=== PATIENT | female | born 1990 | race Caucasian/White ===

== ENCOUNTER 2016-12-17 15:06 | Emergency (ER) | payer OTHER ==
[~2016-12-17] VITALS: Ht 162.6 cm; Wt 77.2 kg
[~2016-12-17 15:06] MED LIST: PRENCAP6 PO
[2016-12-17 15:24] VITALS: BP 113/70; PULSE 101; RESP 16; TEMP 97.6; O2SAT 97
[2016-12-17] MEDS ORDERED: BIRTH CONTROL PILLS (15:33)
--- NOTE | 2016-12-17 15:37 | PD ---
HPI Chief Complaint: Injury Time Seen by Provider: 15:32 Travel History International Travel<30 days: No Contact w/Intl Traveler<30days: No Traveled to known affect area: No History of Present Illness HPI This patient complains of left ankle injury. Duration 2 hours. Severity is moderate. Worse with weightbearing. She planted her ankle and it twisted on her and she has pain in the lateral aspect PFSH Past Medical History Medical History: Denies Significant Hx Diminished Hearing: No Immunizations Current: Yes Tetanus Vaccination: Unknown ?: Not LMP: 11/17/16 Past Surgical History Oral Surgery: Yes (WISDOM TEETH) Social History Alcohol Use: No Tobacco Use: No Substance Use: No Allergies-Medications (Allergen,Severity, Reaction): Coded Allergies: No Known Allergies (Verified , 12/17/16) Reported Meds & Prescriptions Reported Meds & Active Scripts Active Reported [ Control Pills] Review of Systems General / Constitutional: No: Fever HENT: No: Headaches Cardiovascular: No: Chest Pain or Discomfort Respiratory: No: Cough Physical Exam Narrative Psych: Normal mood and affect. Normal insight and judgment. SKIN: Focused skin assessment reveals no rash or ulcers. Skin is warm and dry. Palpation shows no induration or nodules. Left ankle: Has some tenderness and swelling at the lateral malleolus. No open wound. Neurovascularly intact Data Data Last Documented VS Vital Signs Date Time Temp Pulse Resp B/P Pulse Ox O2 Delivery O2 Flow Rate FiO2 12/17/16 15:24 97.6 101 16 113/70 97 Orders Ankle, Complete ([id number]) (12/17/16 ) Splint Or Brace Apply/Monitor (12/17/16 16:04) MDM Medical Decision Making Medical Screen Exam Complete: Yes Emergency Medical Condition: Yes Medical Record Reviewed: Yes Differential Diagnosis Ankle fracture, ankle dislocation, ankle strain Narrative Course I have reviewed the patient's electronic medical record. I reviewed her left ankle x-rays which are negative for fracture Patient brought her own crutches. I gave her a Velcro stirrup splint. She will ice and elevate. Diagnosis Primary Impression: Left ankle sprain Qualified Code: S93.432A - Sprain of tibiofibular ligament of left ankle, initial encounter Additional Instructions: The patient was advised to follow up with their physician and return if they worsen. Use crutches Ice and elevate and limit weightbearing left ankle Med/Other Pt SpecificInfo: Other Disposition: 01 DISCHARGE HOME Condition: Stable Tae Terry MD Dec 17, 2016 15:36
--- NOTE | 2016-12-17 16:17 | RADHPO ---
EXAM DATE/TIME: 12/17/2016 15:39 [facility] COMPARISON: No previous studies available for comparison. INDICATIONS : Complains of left ankle pain. [place] MEDICAL HISTORY : None. SURGICAL HISTORY : None. ENCOUNTER: Initial ACUITY: 1 day PAIN SCORE: 5/10 LOCATION: Left lateral ankle FINDINGS: Three view exam was performed of the left ankle. The bony structures are in normal alignment. No ev idence of fracture, dislocation, or soft tissue swelling. The ankle mortise is intact. No radiopaqu e foreign bodies are seen. Bony mineralization is normal. CONCLUSION: Unremarkable examination of the left ankle. Travis Kamara MD on December 17, 2016 at 16:15 Board Certified Radiologist. This report was verified electronically.
== END 2016-12-17 16:13 | disposition home or self-care (01) ==
LOC: PHEFT 15:06
DX: S93.402A Sprain of unspecified ligament of left ankle, initial encounter (principal); X50.1XXA Overexertion from prolonged static or awkward postures, initial encounter; Y93.9 Activity, unspecified; Y92.9 Unspecified place or not applicable; Y99.9 Unspecified external cause status
CPT/HCPCS: 73610; 99283; L1906